=== PATIENT | female | born 1990 | race Caucasian/White ===

== ENCOUNTER 2016-09-23 07:55 | Inpatient (IN) | payer BC ==
[2016-09-20 08:51] VITALS: Ht 152.4 cm; Wt 72.6 kg
[2016-09-23] VITALS (14 sets, daily range): BP systolic 99–126; RESP 16–22; TEMP 97.1–98.3
[~2016-09-23] VITALS: Ht 152.4 cm; Wt 72.6 kg
[~2016-09-23 07:55] MED LIST: LIDOCAINE 2% SYR 5 ML IV ONE; PROPOFOL 50ML PER ML IV ONE
[2016-09-23] MEDS ORDERED: LACT RINGERS 1,000 ML IV SCH (08:30)
[2016-09-23] MEDS ORDERED: ONDANSETRON 4 MG VIAL IV ONE (08:30)
[2016-09-23] MEDS ORDERED: MIDAZOLAM 2 MG/2 ML INJ IV ONE (08:30)
[2016-09-23] MEDS ORDERED: GLYCOPYRROLATE 0.2 MG/ML VIAL IV ONE ×2 (08:30→09:37)
[2016-09-23] MEDS ORDERED: INDOCYANINE GREEN 25 MG VIAL IV ONE (08:30)
[2016-09-23] MEDS ORDERED: CEFAZOLIN 2,000 MG in SODIUM CHLORIDE 0.9% 100 ML IV ONE (08:30)
[2016-09-23] MEDS ORDERED: LIDOCAINE 1% BUFFERED 1 ML SYR INTRADERM PRN (08:30)
[2016-09-23] MEDS ORDERED: DEXAMETHASONE 4 MG/ML VIAL IV ONE (08:30)
[2016-09-23] MEDS ORDERED: SCOPOLAMINE PATCH TRANSDERM ONE (08:30)
[2016-09-23] MEDS ORDERED: ROCURONIUM 50 MG VIAL IV ONE (09:37)
[2016-09-23] MEDS ORDERED: FENTANYL 100 MCG/2 ML AMP IV ONE (09:37)
[2016-09-23] MEDS ORDERED: METOPROLOL 5 MG/5 ML VIAL IV ONE (09:37)
[2016-09-23] MEDS ORDERED: ACETAMINOPHEN 1,000 MG/100 ML IV ONE (09:37)
[2016-09-23] MEDS ORDERED: PROPOFOL 20 ML PER ML IV ONE (09:37)
[2016-09-23] MEDS ORDERED: NEOSTIGMINE 10 MG/10 ML VIAL IV ONE (09:37)
[2016-09-23] MEDS ORDERED: DILAUDID 1 MG/ML AMP IV ONE (09:37)
[2016-09-23] MEDS ORDERED: LIDOCAINE 2% SYR 5 ML IV ONE (09:37)
[2016-09-23] MEDS ORDERED: PHENYLEPHRINE 10 MG/ML VIAL IV ONE (09:37)
[2016-09-23] MEDS ORDERED: OXYCODONE 5 MG TAB PO PRN (10:40)
[2016-09-23] MEDS ORDERED: ONDANSETRON 4 MG VIAL IV PRN (10:40)
[2016-09-23] MEDS ORDERED: MORPHINE 2 MG/ML SYR IV PRN (10:40)
[2016-09-23] MEDS ORDERED: MORPHINE 4 MG/ML SYR IV PRN (10:40)
[2016-09-23] MEDS: MEPERIDINE 25 MG/ML IV PRN ×2 (12:34→12:55)
[2016-09-23] MEDS: DILAUDID 1 MG/ML AMP IV PRN ×4 (12:34→23:40)
[2016-09-23] MEDS ORDERED: OXYCODONE 5 MG TAB ONE (13:39)
[2016-09-23] MEDS ORDERED: BUPIVACA/EPI 0.25% PF 30ML NERVEBLOCK ONE (13:43)
[2016-09-23] MEDS ORDERED: LIDOCAINE 1% 20ML NERVEBLOCK ONE (13:43)
[2016-09-23] MEDS ORDERED: OPTIRAY 350 100 ML VIAL HMH IV ONE (16:17)
[2016-09-23] MEDS: FAMOTIDINE 20 MG INJ IV SCH (19:52)
[2016-09-23] MEDS: SALINE FLUSH 10 ML FLUSH SCH (19:52)
[2016-09-24] MEDS: SODIUM CHLORIDE 0.9% FLUSH BAG 500 ML IV SCH (05:15)
[2016-09-24] MEDS: DILAUDID 1 MG/ML AMP IV PRN ×6 (06:04→19:45)
[2016-09-24 07:26] VITALS: BP_SYST 115; RESP 16; TEMP 97.5
[2016-09-24] MEDS ORDERED: ACETAMINOPHEN 325 MG TAB PO PRN (07:50)
[2016-09-24] MEDS: FAMOTIDINE 20 MG INJ IV SCH ×2 (07:58→20:12)
[2016-09-24] MEDS: SALINE FLUSH 10 ML FLUSH SCH ×2 (07:59→20:12)
[2016-09-24] MEDS ORDERED: REMOVE TRANSDERMAL PATCH TOPICAL ONE (08:30)
[2016-09-24 10:40] VITALS: BP_SYST 99; RESP 16; TEMP 97.6
[2016-09-24] MEDS ORDERED: MAALOX 30 ML, LIDOCAINE 2% VISC 10 ML PO PRN ×2 (14:30)
[2016-09-24] MEDS: PANTOPRAZOLE 40 MG VIAL IV SCH (14:50)
[2016-09-24 15:07] VITALS: BP_SYST 104; RESP 20
[2016-09-24] MEDS: ONDANSETRON 4 MG VIAL IV PUSH PRN (15:29)
[2016-09-24] MEDS: KETOROLAC 15 MG/ML VIAL IV SCH ×2 (16:02→22:01)
[2016-09-24 20:02] VITALS: BP_SYST 96; RESP 16; TEMP 97.6
[2016-09-24] MEDS: OMNIPAQUE 240 MG/ML, 50 ML PO SCH ×2 (20:11→20:15)
[2016-09-25] MEDS: DILAUDID 1 MG/ML AMP IV PRN ×4 (02:13→22:50)
[2016-09-25] MEDS: SODIUM CHLORIDE 0.9% FLUSH BAG 500 ML IV SCH (05:03)
[2016-09-25] MEDS: KETOROLAC 15 MG/ML VIAL IV SCH ×4 (05:03→18:51)
[2016-09-25 07:38] VITALS: BP_SYST 104; RESP 15; TEMP 98
[2016-09-25] MEDS: SALINE FLUSH 10 ML FLUSH SCH ×2 (08:55→21:42)
[2016-09-25] MEDS: PANTOPRAZOLE 40 MG VIAL IV SCH (08:55)
[2016-09-25] MEDS: FAMOTIDINE 20 MG INJ IV SCH ×2 (08:55→21:42)
[2016-09-25 11:41] VITALS: BP_SYST 103; RESP 15; TEMP 97.5
[2016-09-25 15:26] VITALS: BP_SYST 102; RESP 15; TEMP 97.7
[2016-09-25 19:56] VITALS: BP_SYST 104; RESP 16; TEMP 97.8
[2016-09-25] MEDS: SALINE FLUSH 10 ML FLUSH PRN ×2 (21:42→22:50)
[2016-09-25] MEDS: ONDANSETRON 4 MG VIAL IV PUSH PRN (21:42)
[2016-09-26] VITALS (10 sets, daily range): BP systolic 75–112; RESP 16–24; TEMP 96.5–98
[2016-09-26] MEDS: SODIUM CHLORIDE 0.9% FLUSH BAG 500 ML IV SCH (06:38)
[2016-09-26] MEDS: KETOROLAC 15 MG/ML VIAL IV SCH ×5 (06:38→23:30)
[2016-09-26] MEDS: FAMOTIDINE 20 MG INJ IV SCH (08:00)
[2016-09-26] MEDS ORDERED: REMOVE SCOPALAMINE PATCH XX ONE (08:30)
[2016-09-26] MEDS: PANTOPRAZOLE 40 MG VIAL IV SCH (08:49)
[2016-09-26] MEDS: SALINE FLUSH 10 ML FLUSH SCH ×2 (08:49→19:44)
[2016-09-26] MEDS: DILAUDID 1 MG/ML AMP IV PRN ×2 (08:50→14:17)
[2016-09-26] MEDS ORDERED: LACT RINGERS 1,000 ML IV SCH (13:00)
[2016-09-26] MEDS: Hydrocodone/APAP 10/325 MG TAB PO PRN (16:36)
[2016-09-26] MEDS: ONDANSETRON 4 MG VIAL IV PUSH PRN (20:40)
[2016-09-27 00:01] VITALS: BP_SYST 108; RESP 16; TEMP 97.9
[2016-09-27] MEDS: SODIUM CHLORIDE 0.9% FLUSH BAG 500 ML IV SCH (05:06)
[2016-09-27] MEDS: KETOROLAC 15 MG/ML VIAL IV SCH (05:09)
[2016-09-27 05:14] VITALS: BP_SYST 116; RESP 16; TEMP 97.8
[2016-09-27 07:33] VITALS: BP_SYST 113; RESP 16; TEMP 98.2
[2016-09-27] MEDS: Hydrocodone/APAP 10/325 MG TAB PO PRN (08:01)
[2016-09-27] MEDS: PANTOPRAZOLE 40 MG VIAL IV SCH (08:04)
[2016-09-27] MEDS: SALINE FLUSH 10 ML FLUSH SCH (08:05)
[2016-09-27 10:16] VITALS: BP_SYST 113; RESP 16; TEMP 98.2
[2016-09-28] MEDS ORDERED: PANTOPRAZOLE 40 MG TAB PO SCH (07:00)
== END 2016-09-27 18:06 | disposition home or self-care (01) | DRG 419 ==
LOC: ENRESERVTM → ENRESERVDT → SURG 07:55 → SDS 16:16 → 5THW 17:30 → OBSVTOIN 09-26 13:06
PROVIDERS: ADMIT Surgery; ATTEND Surgery
PROC: 0DB68ZX Excision of Stomach, Via Natural or Artificial Opening Endoscopic, Diagnostic (ICD-10-PCS; 2016-09-26)
PROC: 0FT44ZZ Resection of Gallbladder, Percutaneous Endoscopic Approach (ICD-10-PCS; principal; 2016-09-26 13:00)
DX: K80.80 Other cholelithiasis without obstruction (principal)
CPT/HCPCS: 74177; 80053; 80076; 81025; 85025; 88304; 88305; 88342; 94799